=== PATIENT | male | born 1990 ===

== ENCOUNTER 2017-09-14 15:00 | Emergency (ER) | payer OTHER ==
--- NOTE | 2017-09-14 16:28 | EDM.PDOC ---
ED HPI GENERAL MEDICAL PROBLEM - General Chief Complaint: ENT Problem Stated Complaint: RT EAR HURTS Time Seen by Provider: 09/14/17 16:10 Source of Information: Reports: Patient History Limitations: Reports: No Limitations - History of Present Illness INITIAL COMMENTS - FREE TEXT/NARRATIVE: HISTORY AND PHYSICAL: History of present illness: [Patient comes to the emergency room complaining of yellow right ear drainage. Has been having symptoms for the past 5 days. Has not had fever or chills and does not have any pain in his ears. States that he has a history of ear drainage which usually occurs after swimming. Has an appt scheduled w/ Dr. Baires, ENT, on 10/04/17. ] Review of systems: As per history of present illness and below otherwise all systems reviewed and negative. Past medical history: As per history of present illness and as reviewed below otherwise noncontributory. Surgical history: As per history of present illness and as reviewed below otherwise noncontributory. Social history: No reported history of drug or alcohol abuse. Family history: As per history of present illness and as reviewed below otherwise noncontributory. Physical exam: HEENT: Atraumatic, normocephalic. Left TM shows a mild effusion. Right TM appears perforated and there is a large amount of white colored drainage in his right ear canal. Nares are patent and without discharge. Oral mucous membranes are pink and moist, no tonsillar swelling erythema or exudate. Neck supple no lymphadenopathy noted. Lungs: Clear to auscultation, breath sounds equal bilaterally. Heart: S1S2, regular. Neuro: Awake, alert, oriented. Motor and sensory unremarkable throughout. Exam nonfocal. Impression: [R otitis media] Plan: [Rx written for Augmentin 875 mg #20 sig one by mouth twice a day. Tylenol or ibuprofen as needed for discomfort. Keep appointment with Dr. Baires as you have scheduled. Strict return precautions are reviewed.] Definitive disposition and diagnosis as appropriate pending reevaluation and review of above. - Related Data Allergies Allergy/AdvReac Type Severity Reaction Status Date / Time aspirin Allergy Cannot Verified 09/14/17 15:54 Remember Home Meds: Home Meds . [No Known Home Meds] 09/14/17 [History] Past Medical History - Past Health History Medical/Surgical History: Denies Medical/Surgical History Social & Family History - Family History Family Medical History: Noncontributory - Tobacco Use Smoking Status *Q: Current Every Day Smoker Years of Tobacco use: 10 Packs/Tins Daily: 0.7 - Recreational Drug Use Recreational Drug Use: No ED ROS ENT - Review of Systems Review Of Systems: ROS reveals no pertinent complaints other than HPI. ED EXAM, ENT - Physical Exam Exam: See Below Course - Vital Signs Last Recorded V/S: Last Vital Signs Temp 97.7 F 09/14/17 15:49 Pulse 73 09/14/17 15:49 Resp 18 09/14/17 15:49 BP 130/75 09/14/17 15:49 Pulse Ox 97 09/14/17 15:49 Departure - Departure Time of Disposition: 16:30 Disposition: Home, Self-Care 01 Condition: Good Clinical Impression: Otitis media - Discharge Information Instructions: Otitis Media, Adult Referrals: PCP,None [Primary Care Provider] - Forms: ED Department Discharge Additional Instructions: The following information is given to patients seen in the emergency department who are being discharged to home. This information is to outline your options for follow-up care. We provide all patients seen in our emergency department with a follow-up referral. The need for follow-up, as well as the timing and circumstances, are variable depending upon the specifics of your emergency department visit. If you don't have a primary care physician on staff, we will provide you with a referral. We always advise you to contact your personal physician following an emergency department visit to inform them of the circumstance of the visit and for follow-up with them and/or the need for any referrals to a consulting specialist. The emergency department will also refer you to a specialist when appropriate. This referral assures that you have the opportunity for follow-up care with a specialist. All of these measure are taken in an effort to provide you with optimal care, which includes your follow-up. Under all circumstances we always encourage you to contact your private physician who remains a resource for coordinating your care. When calling for follow-up care, please make the office aware that this follow-up is from your recent emergency room visit. If for any reason you are refused follow-up, please contact the [facility] emergency department at and asked to speak to the emergency department charge nurse. [facility] Specialty care- ENT [address] [place] [id number] Follow-up with your biology research assistant as you're scheduled. Take antibiotics as prescribed. Tylenol or ibuprofen as needed for discomfort. Return to ER as needed as discussed.
== END 2017-09-14 16:39 | disposition home or self-care (01) ==
LOC: MW.ED 15:00
DX: H66.91 Otitis media, unspecified, right ear (principal); H72.92 Unspecified perforation of tympanic membrane, left ear; F17.210 Nicotine dependence, cigarettes, uncomplicated; Z88.6 Allergy status to analgesic agent
CPT/HCPCS: 99282